=== PATIENT | female | born 1990 | race Two or more races ===

== ENCOUNTER 2018-12-02 14:40 | Observation (INO) | payer MEDICAID, OTHER ==
[2018-12-02] MEDS ORDERED: FERR-20 PO (15:55)
[2018-12-02] MEDS ORDERED: PREN-96 PO (15:55)
== END 2018-12-02 18:10 | disposition home or self-care (01) | DRG 566 ==
LOC: LDRP 14:40
PROVIDERS: ADMIT Specialist; ATTEND Specialist
DX: O36.5930 Maternal care for other known or suspected poor fetal growth, third trimester, not applicable or unspecified (principal); O41.03X0 Oligohydramnios, third trimester, not applicable or unspecified; Z3A.38 38 weeks gestation of pregnancy
CPT/HCPCS: 59025; 76805; 76818; 81002; G0378